=== PATIENT | female | born 1995 | race Asian ===

== ENCOUNTER 2018-08-02 21:54 | Emergency (ER) | payer BC ==
[2018-08-02 22:07] VITALS: BP 111/81
--- NOTE | 2018-08-02 22:09 | EDPHY ---
H & P Time Seen by Provider: 08/02/18 22:02 HPI/ROS: CHIEF COMPLAINT: Left arm pain HISTORY OF PRESENT ILLNESS: The patient is a 22-year-old female who burned her left forearm on a cookie sheet on Saturday. It originally had some blistering and sounds as though she had a 2nd degree burn. She states the blister ruptured 1 day ago when she was putting on her coat. She has been keeping it bandaged an using Neosporin. She comes in tonight because she is not sure if it is getting better. No significant erythema. No purulence. No significant swelling. No other trauma. Severity: Moderate Modifying factors: None REVIEW OF SYSTEMS: Constitutional: denies: chills, fever, recent illness, recent injury EENTM: denies: blurred vision, double vision, nose congestion Respiratory: denies: cough, shortness of breath Cardiac: denies: chest pain, irregular heart rate, lightheadedness, palpitations Gastrointestinal/Abdominal: denies: abdominal pain, diarrhea, nausea, vomiting, blood streaked stools Genitourinary: denies: dysuria, frequency, hematuria, pain Musculoskeletal: denies: joint pain, muscle pain Skin: See above Neurological: denies: headache, numbness, paresthesia, tingling, dizziness, weakness Hematologic/Lymphatic: denies: blood clots, easy bleeding, easy bruising Immunologic/allergic: denies: HIV/AIDS, transplant 10 systems reviewed and negative except as noted EXAM: GENERAL: Well-appearing, well-nourished and in no acute distress. HEAD: Atraumatic, normocephalic. EYES: Pupils equal round and reactive to light, extraocular movements intact, sclera anicteric, conjunctiva are normal. ENT: TMs normal, nares patent, oropharynx clear without exudates. Moist mucous membranes. NECK: Normal range of motion, supple without lymphadenopathy or JVD. LUNGS: Breath sounds clear to auscultation bilaterally and equal. No wheezes rales or rhonchi. HEART: Regular rate and rhythm without murmurs, rubs or gallops. ABDOMEN: Soft, nontender, normoactive bowel sounds. No guarding, no rebound. No masses appreciated. BACK: No CVA tenderness, no spinal tenderness, step-offs or deformities EXTREMITIES: Normal range of motion, no pitting or edema. No clubbing or cyanosis. NEUROLOGICAL: Cranial nerves II through XII grossly intact. Normal speech, normal gait. 5/5 strength, normal movement in all extremities, normal sensation , normal reflexes PSYCH: Normal mood, normal affect. SKIN: 3 x 2 cm oval-shaped burn. 2nd degree burn, no significant erythema or swelling. No warmth. Source: Patient Exam Limitations: No limitations - Personal History Current Tetanus/Diphtheria Vaccine: Yes - Medical/Surgical History Hx Asthma: No Hx Chronic Respiratory Disease: No Hx Diabetes: No Hx Cardiac Disease: No Hx Renal Disease: No Hx Cirrhosis: No Hx Alcoholism: No Hx HIV/AIDS: No - Family History Significant Family History: No pertinent family hx - Social History Alcohol Use: Sober Drug Use: None Constitutional: Initial Vital Signs Temperature (C) 37.2 C 08/02/18 22:05 Heart Rate 89 08/02/18 22:05 Respiratory Rate 16 08/02/18 22:05 Blood Pressure 111/81 H 08/02/18 22:05 O2 Sat (%) 97 08/02/18 22:05 O2 Delivery Mode Room Air Allergies/Adverse Reactions: animal dander Allergy (Verified 08/02/18 22:07) Home Medications: Medication Instructions Recorded Albuterol [Proventil Inhaler] 1 - 2 puffs IH Q4H #1 mdi 08/02/18 Claritin 08/02/18 Medical Decision Making ED Course/Re-evaluation: We discussed burn management . She looks like she is doing a good job. Have cleaned and dressed with bacitracin and sterile gauze. We taught her how to do this at home. We discussed daily light cleaning with soap and water as well. She understands and is happy with this plan. Patient is also asking for refill of her albuterol inhaler. Differential Diagnosis: Partial list of the Differential diagnosis considered include but were not limited to; burn, wound infection and although unlikely based on the history and physical exam, I also considered DVT, nerve injury, vascular injury, non accidental trauma. I discussed these differential diagnoses and the plan with the patient as well as the usual and expected course. The patient understands that the diagnosis is provisional and that in medicine we are not always correct and that further workup is often warranted. Usual and customary warnings were given. All of the patient's questions were answered. The patient was instructed to return to the emergency department should the symptoms at all worsen or return, otherwise to followup with the physician as we discussed. Departure - Departure Disposition: Home, Routine, Self-Care Clinical Impression: Second degree burn of left arm Qualifiers: Encounter type: initial encounter Upper extremity location: forearm Qualified Code(s): T22.212A - Burn of second degree of left forearm, initial encounter Condition: Fair Instructions: Second Degree Burn (ED) Referrals: NONE *PRIMARY CARE P,. [Primary Care Provider] - As per Instructions Nadiya Murphy MD [[facility] [place] Primary Care Provider] - As per Instructions Prescriptions: Albuterol [Proventil Inhaler] 1 - 2 puffs IH Q4H #1 mdi
== END 2018-08-02 22:22 | disposition home or self-care (01) ==
DX: T22.212A Burn of second degree of left forearm, initial encounter (principal); X18.XXXA Contact with other hot metals, initial encounter; Y92.9 Unspecified place or not applicable; Y93.G3 Activity, cooking and baking; Y99.9 Unspecified external cause status

== ENCOUNTER 2018-08-25 00:05 | Emergency (ER) | payer BC ==
[2018-08-25 00:22] VITALS: BP 107/54
--- NOTE | 2018-08-25 00:45 | EDPHY ---
H & P Stated Complaint: Cramping, R groin pain during sex, feels like IUD inj/ dislodged Time Seen by Provider: 08/25/18 00:19 HPI/ROS: Chief Complaint: Pelvic pain HPI: 22-year-old woman, G0, began having right sided pelvic pain during sexual intercourse about 45 min ago. Pain was initially sharp. It is now, spread to her upper abdomen. About a 6/10. Also complaining of pain in her right groin. Last menstrual cycle was from the 15 to of last month. No vaginal bleeding or discharge. No history of STI in the past. Only has 1 sexual partner. ROS: 10 systems were reviewed and were negative except those elements noted in the HPI. PMH: Denies Social History: No smoking, no alcohol, no recreational drug use Family History: non-contributory Physical Exam: Gen: Awake, Alert, No Distress HEENT: Nose: no rhinorrhea Eyes: PERRLA, EOMI Mouth: Moist mucosa Neck: Supple, no JVD Chest: nontender, lungs clear to auscultation Heart: S1, S2 normal, no murmur Abd: Soft, mild right adnexal tenderness, no left-sided tenderness, no suprapubic tenderness, no guarding Back: no CVA tenderness, no midline tenderness Ext: no edema, non-tender Skin: no rash Neuro: CN II-XII intact, Sensation grossly intact, Strength 5/5 in bilateral upper and lower extremities - Personal History LMP (Females 10-55): IUD In Place Current Tetanus Diphtheria and Acellular Pertussis (TDAP): Yes - Medical/Surgical History Hx Asthma: No Hx Chronic Respiratory Disease: No Hx Diabetes: No Hx Cardiac Disease: No Hx Renal Disease: No Hx Cirrhosis: No Hx Alcoholism: No Hx HIV/AIDS: No Hx Splenectomy or Spleen Trauma: No Other PMH: R CLAVICLE PLATE, ASTHMA - Social History Smoking Status: Never smoked Constitutional: Initial Vital Signs Temperature (C) 36.8 C 08/25/18 00:15 Heart Rate 86 08/25/18 00:15 Respiratory Rate 17 08/25/18 00:15 Blood Pressure 107/54 L 08/25/18 00:15 O2 Sat (%) 97 08/25/18 00:15 O2 Delivery Mode Room Air Allergies/Adverse Reactions: animal dander Allergy (Verified 08/25/18 00:15) Home Medications: Medication Instructions Recorded Albuterol [Proventil Inhaler] 1 - 2 puffs IH Q4H #1 mdi 08/02/18 Claritin 08/02/18 Medical Decision Making - Diagnostics Imaging Results: Pelvic ultrasound shows a 2 cm collapsing left ovarian cyst. Small amount of fluid. IVs in good position. Otherwise negative ultrasound interpreted by Dr. Iraheta. ED Course/Re-evaluation: 22-year-old woman began having a sudden onset of pelvic pain during sexual intercourse. She is not . Pelvic ultrasound shows a collapsing left ovarian cyst, otherwise negative. Abdomen is soft and benign. For will be for discharge with referral to OBGYN. Will give her ibuprofen here. - Data Points Laboratory Results: 08/25/18 08/25/18 00:30 00:30 Urine Color COLORLESS Urine Appearance CLEAR Urine pH 7.0 (5.0-7.5) Ur Specific [place] 1.003 (1.002-1.030) Urine Protein NEGATIVE (NEGATIVE) Urine Ketones NEGATIVE (NEGATIVE) Urine Blood NEGATIVE (NEGATIVE) Urine Nitrate NEGATIVE (NEGATIVE) Urine Bilirubin NEGATIVE (NEGATIVE) Urine Urobilinogen NEGATIVE EU EU (0.2-1.0) Ur Leukocyte Esterase NEGATIVE (NEGATIVE) Urine Glucose NEGATIVE (NEGATIVE) Urine Test NEGATIVE Departure - Departure Disposition: Home, Routine, Self-Care Clinical Impression: Ovarian cyst Condition: Good Instructions: Ovarian Cyst (ED) Additional Instructions: Take ibuprofen, 600 mg every 8 hr. You may alternate with acetaminophen, 1000 mg every 8 hr. Follow up with OBGYN if you're pain is not improved in several days. Referrals: Virginia Hopper MD [Medical Doctor] - As per Instructions
[2018-08-25] MEDS ORDERED: IBUPROFEN 600 MG TAB PO ONE (01:05)
== END 2018-08-25 01:27 | disposition home or self-care (01) ==
DX: N83.292 Other ovarian cyst, left side (principal)